=== PATIENT | female | born 1965 | race American Indian/Alaskan Native ===

== ENCOUNTER 2017-11-28 16:37 | Emergency (ER) | payer BC ==
[2017-11-28 18:13] LABS: Basophils # (Auto) 0.1 K/mm3 (0.0-0.1); Basophils % (Auto) 0.9 % (0.0-1.8); Eosinophils # (Auto) 0.2 K/mm3 (0.0-0.4); Hemoglobin 12.9 gm/dl (10.1-14.3); Lymphocytes # (Auto) 1.7 K/mm3 (1.2-5.4); Lymphocytes % (Auto) 18.5 % (13.4-35.0); Mean Corpuscular HGB Conc 33 % (30-34); Mean Corpuscular Hemoglobin 29 pg (28-32); Mean Corpuscular Volume 88 fl (79-97); Monocytes # (Auto) 0.6 K/mm3 (0.0-0.8); Monocytes % (Auto) 6.2 % (0.0-7.3); Platelet Count 519 K/mm3 (140-440); Red Blood Count 4.46 M/mm3 (3.65-5.03)
[2017-11-28 18:31] LABS: Alanine Aminotransferase 9 units/L (7-56); BUN/Creatinine Ratio 21; Blood Urea Nitrogen 21 mg/dL (7-17); Calcium 10.9 mg/dL (8.4-10.2); Hemolysis Index 11
[2017-11-28 18:37] LABS: Bilirubin,Urine NEG (Negative); Blood,Urine MOD (Negative); Color,Urine Yellow (Yellow); Protein,Urine <15 mg/dL mg/dL (Negative); Urobilinogen,Urine < 2.0 mg/dL (<2.0)
[2017-11-29] MEDS ORDERED: SUBLIMAZE IV ONE (03:33)
[2017-11-29] MEDS ORDERED: NACL 0.9% 1000 ML 1,000 ML IV ONE (03:33)
[2017-11-29] MEDS ORDERED: ZOFRAN IV ONE (03:33)
[2017-11-29] MEDS ORDERED: HumuLIN R IV ONE (04:44)
[2017-11-29] MEDS ORDERED: DILAUDID IV ONE (04:44)
--- NOTE | 2017-11-29 05:10 | Emergency Department Report ---
HPI - General Chief Complaint: Abdominal Pain Time Seen by Provider: 11/29/17 02:42 - HPI HPI: The patient is a 52-year-old female with a history of diabetes, presents for evaluation of abdominal pain. The patient reports lower cramping in quality abdominal pain since November 11, 3 weeks ago, 10/10 in severity for the past one day, and is exacerbated with movement. The patient denies fever, chills, night sweats, chest pain, dyspnea, diarrhea, blood in the stool, dark tarry stool, dysuria, hematuria, flank pain, genital discharge, vaginal bleeding, inability to pass flatus. ED Past Medical Hx - Social History Smoking Status: Never Smoker Substance Use Type: None - Medications Home Medications: Home Medications Medication Instructions Recorded Confirmed Last Taken Type traMADol [Ultram 50 MG tab] 50 mg PO Q6HR PRN #15 tablet 11/29/17 Unknown Rx ED Review of Systems ROS: Stated complaint: PAIN FROM [employer] PROCEDURE Other details as noted in HPI Constitutional: denies: fever ENT: denies: throat or neck pain Respiratory: denies: cough, shortness of breath Cardiovascular: denies: chest pain Endocrine: denies unexplained weight loss or gain Gastrointestinal: reports: abdominal pain, nausea Genitourinary: denies: dysuria Musculoskeletal: denies: leg swelling Skin: denies: rash Neurological: denies: headache Hematological/Lymphatic: denies: easy bleeding or easy bruising Psych: denies sadness or hopelessness Physical Exam - Physical Exam Vital Signs: Vital Signs 11/28/17 17:20 Temperature 98.8 F Pulse Rate 108 H Respiratory 16 Rate Blood Pressure 148/106 O2 Sat by Pulse 99 Oximetry Physical Exam: General: well-nourished, well-developed, no acute distress Head: Normocephalic, atraumatic Eyes: normal sclera ENT: Mucous membranes are pale and dry Neck: No neck stiffness, no cervical adenopathy Respiratory: Breath sounds equal bilaterally, no wheezing, rales, or rhonchi Cardio: S1 and S2 present, no murmurs, rubs, gallops, capillary refill is delayed Abdomen: Normoactive bowel sounds, soft abdomen, periumbilical tenderness to palpation present, no rigidity, no guarding or rebound tenderness Chest WALL/Back: No tenderness to palpation of the chest wall, no CVA tenderness with percussion Musc: No pitting edema Skin: No rash Neuro: no facial drooping, normal speech Psych: Normal affect ED Course Vital Signs 11/28/17 17:20 Temperature 98.8 F Pulse Rate 108 H Respiratory 16 Rate Blood Pressure 148/106 O2 Sat by Pulse 99 Oximetry ED Medical Decision Making - Lab Data Result diagrams: 11/28/17 17:39 11/28/17 17:39 - Medical Decision Making The patient was seen and examined by myself. The patient is placed on a radiographer cardiac catheterization and continuous pulse ox. On initial evaluation, the patient was found to be in no distress. Evaluation orders are placed. IV access is established and the patient is given 1 L normal saline fluid bolus and Zofran for nausea, and IV analgesic for pain. Lab results revealed elevated glucose of 570, and otherwise labs were non-concerning including nml arterial pH, bicarbonate level, not consistent with DKA, WBC, hemoglobin, hematocrit, renal function, LFTs, lipase. The patient is given IV insulin for treatment of her hyperglycemia. The patient was reevaluated and reported that their symptoms were markedly improved. The patient is stable for discharge with outpatient follow-up. The patient is given follow-up and return instructions. The patient expressed understanding and agreed with the plan. The patient is discharged in stable condition. Critical care attestation.: If time is entered above; I have spent that time in minutes in the direct care of this critically ill patient, excluding procedure time. ED Disposition Clinical Impression: Suprapubic pain, Dehydration, Acute hyperglycemia Disposition: DC-01 TO HOME OR SELFCARE Is pt being admited?: No Does the pt Need Aspirin: No Condition: Stable Instructions: Abdominal Pain (ED), Dehydration (ED), Diabetic Hyperglycemia (ED ) Referrals: PRIMARY CARE, [Primary Care Provider] - 3-5 Days Time of Disposition: 04:44
[2017-11-29] MEDS ORDERED: KIONEX PO ONE (05:30)
[2017-11-29] MEDS ORDERED: DILAUDID ONE (05:32)
[2017-11-29 05:52] VITALS: BP 146/90
== END 2017-11-29 06:15 | disposition home or self-care (01) ==
LOC: ED 16:37
DX: E86.0 Dehydration (principal); R73.9 Hyperglycemia, unspecified
CPT/HCPCS: 36415; 80053; 81001; 82803; 85025; 96361; 96374; 96375; 99283; J1170; J2405; J3010; J7030; J1815